=== PATIENT | male | born 1970 | race Caucasian/White ===

== ENCOUNTER 2016-09-26 07:13 | Day surgery (SDC) | payer MEDICAID ==
[2016-09-26 07:31] VITALS: BMI 34.5
[2016-09-26] MEDS ORDERED: ceFAZolin IV 2 gm in Dextrose 1 GM/50 ML BAG IVPB ONE (07:44)
[2016-09-26] MEDS ORDERED: Bupivacaine-Epi 0.25%-1:200,000 PF Inj ONE (07:44)
[2016-09-26] MEDS ORDERED: Lidocaine 1% Inj (20ml) ONE (07:44)
[2016-09-26] MEDS ORDERED: Midazolam 2 MG/2 ML VIAL ONE (07:57)
[2016-09-26] MEDS ORDERED: Propofol 10 mg/ml Inj (20 ML) ONE (07:57)
[2016-09-26] MEDS ORDERED: Lactated Ringer's 1,000 ML IV ONE (08:25)
[2016-09-26] MEDS ORDERED: HYDROmorphone 0.5 mg/0.5 ml ISec IVP PRN (08:57)
--- NOTE | 2016-09-26 09:20 | PCM.SURG1 ---
Surgeon's Initial Post Op Note - Surgeon's Notes Surgeon: [employer]en [employer] Internship: [facility] Pre-Operative Diagnosis: Two sebaceous cysts of the back (left upper and middle upper) Operative Findings: Two sebaceous cysts of the back (left upper and middle upper ) Post-Operative Diagnosis: Two sebaceous cysts of the back (left upper and middle upper) Operation Performed: excision of two sebaceous cysts of the back (left upper and middle upper) Specimen/Specimens Removed: Two sebaceous cysts of the back (left upper and middle upper) Estimated Blood Loss: EBL {In ML}: 5 Date of Surgery/Procedure: 09/26/16 Time of Surgery/Procedure: 08:15
[2016-09-26] MEDS ORDERED: Oxycodone/Acetaminophen 5/325 mg Tab PO PRN (09:21)
[2016-09-26 12:41] VITALS: BP 141/77; PULSE 62; RESP 20; TEMP 98; O2SAT 98
== END 2016-09-26 12:10 | disposition home or self-care (01) ==
LOC: C.SDS 07:13
PROVIDERS: ATTEND Surgery Surgical Critical Care
DX: L72.0 Epidermal cyst (principal); I10 Essential (primary) hypertension; E66.9 Obesity, unspecified; Z68.34 Body mass index [BMI] 34.0-34.9, adult
CPT/HCPCS: 11404; 12032; 88305; J0690; J2250; J2704; J3010; J7120